=== PATIENT | male | born 1990 | race African-American/Black ===

== ENCOUNTER 2017-06-28 12:27 | Emergency (ER) | payer SELFPAY ==
[~2017-06-28] VITALS: Ht 175.3 cm; Wt 83.5 kg
[2017-06-28 12:58] VITALS: BP 130/61
--- NOTE | 2017-06-28 13:00 | NUR ---
PER DR SCHULTE [facility]
--- NOTE | 2017-06-28 13:05 | NUR ---
26/M BIB SELF C/O OF RASH ON NECK, BL UNDER ARM, BUTTOCKS, GENITAL X 4 DAYS WITH ITCHING; DENIES PAIN. DENIES N/V/D; SKIN IS PINK/WARM/DRY; AAOX4 WITH EVEN AND STEADY GAIT; LUNGS CLEAR BL; PATIENT STATES PAIN OF 0/10 AT THIS TIME; VSS; PATIENT POSITIONED FOR COMFORT; HOB ELEVATED; BEDRAILS UP X2; BED DOWN. ER MD MADE AWARE OF PT STATUS.
--- NOTE | 2017-06-28 14:00 | NUR ---
Patient discharged with v/s stable. Written and verbal after care instructions given and explained. Patient alert, oriented and verbalized understanding of instructions. Ambulatory with steady gait. All questions addressed prior to discharge. ID band removed. Patient advised to follow up with PMD. Rx of PREDNISONE,BENADRYL given. Patient educated on indication of medication including possible reaction and side effects. Opportunity to ask questions provided and answered.
[2017-06-28 14:03] VITALS: BP 115/60
== END 2017-06-28 14:00 | disposition home or self-care (01) ==
LOC: MED 12:27
DX: R21 Rash and other nonspecific skin eruption (principal)
CPT/HCPCS: 99283

== ENCOUNTER 2022-04-17 19:43 | Emergency (ER) | payer BC ==
[~2022-04-17] VITALS: Ht 167.6 cm; Wt 72.6 kg
[2022-04-17 19:55] VITALS: BP 120/71
--- NOTE | 2022-04-17 20:22 | NUR ---
URINE OBTAINED FROM PT
[2022-04-17 20:51] LABS: APPEARANCE,URINE CLEAR (CLEAR); BILIRUBIN,URINE NEGATIVE (NEGATIVE); BLOOD, URINE NEGATIVE (NEGATIVE); COLOR,URINE YELLOW (YELLOW); LEUKOCYTE ESTERASE ,URINE NEGATIVE (NEGATIVE); NITRITE, URINE NEGATIVE (NEGATIVE); PH,URINE 6.5 (5.0-9.0); UGLUCOSE NEGATIVE (NEGATIVE)
--- NOTE | 2022-04-17 21:02 | NUR ---
PT AMBULATE TO ROOM 5
[2022-04-17] MEDS ORDERED: AZITHROMYCIN 250 MG TAB PO ONE (22:05)
[2022-04-17] MEDS ORDERED: cefTRIAXone 500 MG in LIDOCAINE MPF 1% 1 ML IM ONE (22:05)
[2022-04-17] MEDS ORDERED: cefTRIAXone 500 MG VIAL ONE (22:11)
[2022-04-17] MEDS ORDERED: LIDOCAINE MPF 1% 5 ML ONE (22:15)
--- NOTE | 2022-04-17 22:31 | NUR ---
Patient discharged with v/s stable. Written and verbal after care instructions given and explained. Patient verbalized understanding. Ambulatory with steady gait. All questions addressed prior to discharge. Advised to follow up with PMD.
== END 2022-04-17 22:31 | disposition home or self-care (01) ==
LOC: MED 19:43
DX: N48.29 Other inflammatory disorders of penis (principal)
CPT/HCPCS: 81003; 87491; 96372; 99283; J0696; J2001